=== PATIENT | male | born 1960 | race American Indian/Alaskan Native ===

== ENCOUNTER 2018-09-29 11:35 | Observation (INO) | payer MEDICAID ==
[2018-09-29] MEDS ORDERED: BABY ASPIRIN PO ONE (13:16)
--- NOTE | 2018-09-29 13:25 | Emergency Department Report ---
ED Chest Pain HPI - General Chief Complaint: Chest Pain Stated Complaint: CHEST PAIN/NAUSEA Time Seen by Provider: 09/29/18 12:06 Source: patient, family, EMS, old records reviewed Mode of arrival: Stretcher Limitations: No Limitations - History of Present Illness Initial Comments: 58-year-old -O[place] male presents to the emergency department with complaint of some midsternal chest pain that has been going on for the past 1.5 weeks but worsened today while in [employer]. He says that it is a tightness sensation. It is associated with some shortness of breath. Patient also complains of a fall that he had a few days ago. At that time he fell and his carotids, hit his head and had some loss of consciousness. He still has a mild headache and some right-sided neck pain. He has a past medical history of [id number] diabetes, high cholesterol, hypertension. He is a tobacco smoker but denies any illicit drug use or abuse. He has not taken anything for her symptoms prior to arrival. No recent travel or sick contacts at home. - Related Data Home Medications Medication Instructions Recorded Confirmed Last Taken Aspirin BABY CHEW TAB 1 tab PO DAILY 12/03/14 12/10/14 5 Days Ago ~12/05/14 Losartan 50 mg PO DAILY 12/03/14 12/10/14 12/10/14 06:00 Simvastatin 20 mg PO DAILY 12/03/14 12/10/14 12/09/14 11:00 Vitamin D 1 tab PO DAILY 12/03/14 12/10/14 12/09/14 11:00 metFORMIN 1,000 mg PO BID 12/03/14 12/10/14 12/09/14 18:00 Allergies Allergy/AdvReac Type Severity Reaction Status Date / Time No Known Allergies Allergy Verified 12/03/14 11:11 Heart Score - HEART Score History: Moderately suspicious EKG: Normal Age: 45-65 Risk factors: > 3 risk factors or hx of atherosclerotic disease Troponin: < normal limit HEART Score: 4 - Critical Actions Critical Actions: 4-6 pts:12-16.6% risk of adverse cardiac event. Should be admitted ED Review of Systems ROS: Stated complaint: CHEST PAIN/NAUSEA Other details as noted in HPI Comment: All other systems reviewed and negative Constitutional: denies: chills, fever Eyes: denies: eye pain, vision change ENT: denies: ear pain, throat pain Respiratory: shortness of breath. denies: cough Cardiovascular: chest pain. denies: edema Gastrointestinal: denies: vomiting, diarrhea Genitourinary: denies: dysuria, discharge Musculoskeletal: denies: joint swelling, arthralgia Skin: denies: rash, lesions Neurological: headache. denies: numbness, paresthesias ED Past Medical Hx - Past Medical History Hx Hypertension: Yes (losartan) Hx Heart Attack/AMI: No Hx Diabetes: Yes Hx Liver Disease: No Hx Seizures: No Hx Asthma: No Hx COPD: No Hx HIV: No - Surgical History Hx Pacemaker: No Hx Internal Defibrillator: No Hx Cholecystectomy: Yes - Social History Smoking Status: Current Every Day Smoker - Medications Home Medications: Home Medications Medication Instructions Recorded Confirmed Last Taken Type Aspirin BABY CHEW TAB 1 tab PO DAILY 12/03/14 12/10/14 5 Days Ago History ~12/05/14 Losartan 50 mg PO DAILY 12/03/14 12/10/14 12/10/14 06:00 History Simvastatin 20 mg PO DAILY 12/03/14 12/10/14 12/09/14 11:00 History Vitamin D 1 tab PO DAILY 12/03/14 12/10/14 12/09/14 11:00 History metFORMIN 1,000 mg PO BID 12/03/14 12/10/14 12/09/14 18:00 History ED Physical Exam - General Limitations: No Limitations - Other Other exam information: GENERAL: The patient is well-developed well-nourished. HEENT: Normocephalic. Atraumatic. Patient has moist mucous membranes. EYES: Extraocular motions are intact. Pupils are equal and reactive to light bilaterally. NECK: Supple. Trachea is midline. There is a right lateral cervical lymph node. CHEST/LUNGS: Clear to auscultation. There is no respiratory distress noted. HEART/CARDIOVASCULAR: Regular. There is no tachycardia. There is no obvious murmur. ABDOMEN: Abdomen is soft, nontender. Patient has normal bowel sounds. There is no abdominal distention. SKIN: Skin is warm and dry. NEURO: The patient is awake, alert, and oriented. The patient is cooperative. The patient has no focal neurologic deficits. The patient has normal speech. MUSCULOSKELETAL: There is no tenderness or deformity. There is no limitation range of motion. There is no evidence of acute injury. ED Course Vital Signs 09/29/18 09/29/18 09/29/18 11:56 12:01 12:15 Pulse Rate 85 78 76 Respiratory 11 L 17 17 Rate Blood Pressure 111/65 110/62 O2 Sat by Pulse Oximetry 09/29/18 09/29/18 09/29/18 12:30 12:45 13:00 Pulse Rate 84 82 80 Respiratory 16 16 13 Rate Blood Pressure 115/67 110/61 113/61 O2 Sat by Pulse Oximetry 09/29/18 09/29/18 09/29/18 13:15 13:30 13:45 Pulse Rate 79 72 77 Respiratory 16 16 17 Rate Blood Pressure 104/56 120/65 125/75 O2 Sat by Pulse Oximetry 09/29/18 09/29/18 09/29/18 13:50 14:00 14:35 Pulse Rate 73 73 Respiratory 18 18 14 Rate Blood Pressure 129/72 129/72 O2 Sat by Pulse Oximetry 09/29/18 09/29/18 09/29/18 14:45 15:00 15:15 Pulse Rate 73 78 84 Respiratory 17 16 17 Rate Blood Pressure 127/71 118/67 116/57 O2 Sat by Pulse Oximetry 09/29/18 15:30 Pulse Rate 73 Respiratory 16 Rate Blood Pressure 112/67 O2 Sat by Pulse 98 Oximetry FRANCOIS score - Francois Score Age > 65: (0) No Aspirin use within the Past 7 Days: (0) No 3 or more CAD Risk Factors: (1) Yes 2 or more Angina events in past 24 hrs: (1) Yes Known CAD with more than 50% Stenosis: (0) No Elevated Cardiac Markers: (0) No ST Deviation Greater than 0.5mm: (0) No FRANCOIS Score: 2 ED Medical Decision Making - Lab Data Result diagrams: 09/29/18 13:04 09/29/18 13:04 - EKG Data -: EKG Interpreted by Me EKG shows normal: sinus rhythm, axis, intervals, QRS complexes, ST-T waves Rate: normal - EKG Data When compared to previous EKG there are: previous EKG unavailable Interpretation: normal EKG - Radiology Data Radiology results: report reviewed, image reviewed interpreted by me: Chest x-ray does not show any pneumothorax, pleural effusion, pneumonia or obvious focal consolidation. EXAM: CT HEAD/BRAIN WO CON HISTORY: headache, trauma TECHNIQUE: CT of the head was performed. No intravenous contrast was admi nistered. PRIORS: None. FINDINGS: There is no evidence of intracranial hemorrhage. There is no edema, mass effect or midline shift. There are no abnormal extra-axial fluid collections. The ventricles are appropriate for brain volume. There is no skull fracture seen. There is some sinus mucosal thickening. IMPRESSION: There is no acute intracranial abnormality identified. Transcribed By: BETHANY Dictated By: CHEKO SALVADOR MD Electronically Authenticated By: CHEKO SALVADOR MD Signed Date/Time: 09/29/[address] of the cervical spine does not show any acute process. Degenerative changes noted. - Medical Decision Making Patient presents with some chest pain and shortness of breath has been going on for the past week but worsened today. EKG did not show any signs of ST elevation IL. Chest x-ray does not show any pleural effusions, pneumothorax, focal consolidation, pneumonia, or any other acute process. So far the patient 's labs have been unremarkable including negative troponins 2 and a negative d- dimer. Patient has a moderate heart score and a FRANCOIS score of 2. He has never had a full cardiac workup including any type of stress test or cardiac catheterization. He continues to have chest discomfort. He will be admitted to the hospital for further evaluation and treatment and was accepted for admission by the hospitalist, Dr. Hines. The patient had also complained of a mild headache and some neck pain after having a fall a few days ago. CT scan of the head and cervical spine were done that did not show any acute processes. - Differential Diagnosis IL, PE, Costochondritis, GERD Critical Care Time: No Critical care attestation.: If time is entered above; I have spent that time in minutes in the direct care of this critically ill patient, excluding procedure time. ED Disposition Clinical Impression: Acute chest pain, Ruled out for myocardial infarction Disposition: OP ADMIT IP TO THIS HOSP Is pt being admited?: Yes Condition: Stable Instructions: Chest Pain (ED) Referrals: YENNIFER SALAS [Primary Care Provider] - 3-5 Days Time of Disposition: 16:53
[2018-09-29 13:31] LABS: Basophils % (Auto) 0.7 % (0.0-1.8); Eosinophils # (Auto) 0.2 K/mm3 (0.0-0.4); Eosinophils % (Auto) 2.3 % (0.0-4.3); Hematocrit 38.8 % (35.5-45.6); Lymphocytes # (Auto) 2.8 K/mm3 (1.2-5.4); Lymphocytes % (Auto) 40.3 % (13.4-35.0); Mean Corpuscular HGB Conc 33 % (32-34); Mean Corpuscular Volume 89 fl (84-94); Monocytes # (Auto) 0.5 K/mm3 (0.0-0.8); Monocytes % (Auto) 7.2 % (0.0-7.3); Platelet Count 192 K/mm3 (140-440); Red Blood Count 4.39 M/mm3 (3.65-5.03); Red Cell Distribution Width 15.2 % (13.2-15.2)
--- NOTE | 2018-09-29 13:53 | XRay Report ---
FINAL REPORT EXAM: XR CHEST 1V AP HISTORY: Chest Pain COMPARISON: None. TECHNIQUE: Two frontal views of the chest FINDINGS: The cardiomediastinal silhouette is normal in appearance. The lungs are clear without focal consolidation. There is no pleural effusion or pneumothorax. There is no acute soft tissue or osseous abnormality. IMPRESSION: No acute cardiopulmonary disease.
[2018-09-29 14:47] LABS: Alanine Aminotransferase 18 units/L (7-56); Albumin 4.3 g/dL (3.9-5); BUN/Creatinine Ratio 23; Blood Urea Nitrogen 23 mg/dL (9-20); Calcium 9.3 mg/dL (8.4-10.2); Hemolysis Index 7
[2018-09-29] MEDS ORDERED: MORPHINE IV ONE ×2 (14:49→14:56)
--- NOTE | 2018-09-29 15:04 | Cat Scan Report ---
FINAL REPORT EXAM: CT HEAD/BRAIN WO CON HISTORY: headache, trauma TECHNIQUE: CT of the head was performed. No intravenous contrast was administered. PRIORS: None. FINDINGS: There is no evidence of intracranial hemorrhage. There is no edema, mass effect or midline shift. There are no abnormal extra-axial fluid collections. The ventricles are appropriate for brain volume. There is no skull fracture seen. There is some sinus mucosal thickening. IMPRESSION: There is no acute intracranial abnormality identified.
[2018-09-29] MEDS ORDERED: BABY ASPIRIN ONE (16:01)
[2018-09-30] MEDS ORDERED: DILAUDID IV PRN (03:47)
[2018-09-30] MEDS ORDERED: SODIUM CHLORIDE FLUSH SYRINGE 10 ML IV PRN (03:47)
[2018-09-30] MEDS ORDERED: TYLENOL PO PRN (03:47)
[2018-09-30] MEDS ORDERED: ZOFRAN IV PRN (03:47)
--- NOTE | 2018-09-30 03:58 | Event Note ---
Date: 09/29/18 See dictated H/p in reports Chest pain r/o KS HTN T2dm
[2018-09-30] MEDS ORDERED: NON-FORMULARY (Metformin 1,000 MG) PO SCH (04:00)
--- NOTE | 2018-09-30 04:41 | History and Physical Report ---
CHIEF COMPLAINT: Left-sided chest pain for the past 10 days. HISTORY OF PRESENT ILLNESS: The patient is a 58-year-old -[place] male comes in for left-sided chest pain for the last 10 days. Chest tightness sensation, 5/10 on a scale of 1-10. Slight shortness of breath present. Otherwise, no palpitations, no diaphoresis. The patient has history of type 2 diabetes, hypertension, and hyperlipidemia. PAST MEDICAL HISTORY: As mentioned, significant for hypertension, type 2 diabetes, and hyperlipidemia. PAST SURGICAL HISTORY: Cholecystectomy. SOCIAL HISTORY: Smokes about half a pack a day. FAMILY HISTORY: Significant for hypertension. REVIEW OF SYSTEMS: Significant for left-sided chest pain associated with slight shortness of breath. Otherwise, review of systems negative. PHYSICAL EXAMINATION: GENERAL: Middle-aged male, cooperative during examination. VITAL SIGNS: Blood pressure is 106/50, temperature is 98, pulse is 84, respirations 18. HEENT: Unremarkable. Pupils equal and reactive. NECK: Supple, no lymphadenopathy, no thyromegaly. LUNGS: Clear to auscultation and percussion. Good air entry. CARDIOVASCULAR: S1, S2 heard. No gallop, no murmur, no rub. Apical impulse in left fifth intercostal space and midclavicular line. ABDOMEN: Soft and benign. No hepatosplenomegaly. No guarding, no rigidity. Hernial orifices are normal. EXTREMITIES: Good pedal pulses. No pedal edema. CENTRAL NERVOUS SYSTEM: Alert and oriented x 4, nonfocal exam. LABORATORY DATA AND IMAGING: EKG shows normal sinus rhythm, no acute ST-T wave changes. CT of the head is normal. No acute findings. Labs are significant for white count of 7000, normal hemoglobin and hematocrit, normal electrolytes: Glucose is 162. ASSESSMENT AND PLAN: 1. Chest pain, rule out myocardial infarction, chest pain protocol. 2. Hypertension. Continue antihypertensives. 3. Type 2 diabetes mellitus. Continue metformin and coverage. 4. Hyperlipidemia. Continue statins. 5. Deep venous thrombosis prophylaxis, Lovenox 40 mg subcutaneous daily. JOB# [id number] VSM/NTS
[2018-09-30] MEDS ORDERED: NON-FORMULARY (Aspirin Baby Chew Tab 1 TAB) PO SCH (10:00)
[2018-09-30] MEDS ORDERED: PEPCID PO SCH (10:00)
[2018-09-30] MEDS ORDERED: NON-FORMULARY (Simvastatin 20 MG) PO SCH (10:00)
[2018-09-30] MEDS ORDERED: SODIUM CHLORIDE FLUSH SYRINGE 10 ML IV SCH (10:00)
[2018-09-30] MEDS ORDERED: BABY ASPIRIN PO SCH (10:00)
[2018-09-30] MEDS ORDERED: NON-FORMULARY (Amlodipine Besylate [Norvasc] 2.5 MG) PO SCH (10:00)
[2018-09-30] MEDS ORDERED: COZAAR PO SCH (10:00)
[2018-09-30] MEDS ORDERED: NORVASC PO SCH (10:00)
[2018-09-30] MEDS ORDERED: NON-FORMULARY (Losartan 50 MG) PO SCH (10:00)
[2018-09-30] MEDS ORDERED: LEXISCAN IV ONE (10:25)
--- NOTE | 2018-09-30 11:11 | Progress Note ---
Assessment and Plan Assessment and plan: Patient is a 58 yo man with a history of hypertension, type 2 DM, dyslipidemia and tobacco dependency who presented with Chest pains. -Chest pains, atypical: stress test pending -GERD: ppi -Type 2 dm: ssi, ada, metformin -Hypertension: continue antihypertensives, stress test pending, low salt diet stressed D/c if stress test negative. History Interval history: Patient was seen and examined. Follow-up on current diagnosis of cp and sob especially at night. Overnight uneventful. Patient denies any nausea/vomiting or severe headaches. Imaging, nursing note, chart, labs and old chart reviewed. Discussed with patient. Gen: WDWN, NAD, Awake, Alert, Orientated HEENT: NCAT, EOMI, PERRL, OP Clear Neck: supple, no adenopathy, no thyromegaly, no JVD CVS/Heart: RRR, normal S1S2, pulses present bilaterally Chest/Lungs: CTA B, Symmetrical chest expansion, good air entry bilaterally GI/Abdomen: soft, NTND, good bowel sounds, no guarding or rebound /Bladder: no suprapubic tenderness, no CVA or paraspinal tenderness Extermity/Skin: no c/c/e, no obvious rash MSK: FROM x 4 Neuro: CN 2-12 grossly intact, no new focal deficits Psych: calm Hospitalist Physical - Constitutional Vitals: Temp Pulse Resp BP Pulse Ox 97.8 F 68 18 137/91 98 09/30/18 08:49 09/30/18 08:49 09/30/18 08:49 09/30/18 08:49 09/30/18 08:49 Results - Labs CBC & Chem 7: 09/29/18 13:04 09/29/18 13:04 Labs: Laboratory Last Values WBC 7.0 K/mm3 (4.5-11.0) 09/29/18 13:04 RBC 4.39 M/mm3 (3.65-5.03) 09/29/18 13:04 Hgb 13.0 gm/dl (11.8-15.2) 09/29/18 13:04 Hct 38.8 % (35.5-45.6) 09/29/18 13:04 MCV 89 fl (84-94) 09/29/18 13:04 MCH 30 pg (28-32) 09/29/18 13:04 MCHC 33 % (32-34) 09/29/18 13:04 RDW 15.2 % (13.2-15.2) 09/29/18 13:04 Plt Count 192 K/mm3 (140-440) 09/29/18 13:04 Lymph % (Auto) 40.3 % (13.4-35.0) H 09/29/18 13:04 [place] % (Auto) 7.2 % (0.0-7.3) 09/29/18 13:04 Eos % (Auto) 2.3 % (0.0-4.3) 09/29/18 13:04 Baso % (Auto) 0.7 % (0.0-1.8) 09/29/18 13:04 Lymph # 2.8 K/mm3 (1.2-5.4) 09/29/18 13:04 [place] # 0.5 K/mm3 (0.0-0.8) 09/29/18 13:04 Eos # 0.2 K/mm3 (0.0-0.4) 09/29/18 13:04 Baso # 0.0 K/mm3 (0.0-0.1) 09/29/18 13:04 Seg Neutrophils % 49.5 % (40.0-70.0) 09/29/18 13:04 Seg Neutrophils # 3.5 K/mm3 (1.8-7.7) 09/29/18 13:04 D-Dimer < 135.00 ng/mlDDU (0-234) 09/29/18 13:04 Sodium 139 mmol/L (137-145) 09/29/18 13:04 Potassium 4.1 mmol/L (3.6-5.0) 09/29/18 13:04 Chloride 102.4 mmol/L (98-107) 09/29/18 13:04 Carbon Dioxide 23 mmol/L (22-30) 09/29/18 13:04 Anion Gap 18 mmol/L 09/29/18 13:04 BUN 23 mg/dL (9-20) H 09/29/18 13:04 Creatinine 1.0 mg/dL (0.8-1.5) 09/29/18 13:04 Estimated GFR > 60 ml/min 09/29/18 13:04 BUN/Creatinine Ratio 23 % 09/29/18 13:04 Glucose 162 mg/dL (75-100) H 09/29/18 13:04 Hemoglobin A1c 7.5 % (4-6) H 09/30/18 06:46 Calcium 9.3 mg/dL (8.4-10.2) 09/29/18 13:04 Total Bilirubin 0.20 mg/dL (0.1-1.2) 09/29/18 13:04 AST 19 units/L (5-40) 09/29/18 13:04 ALT 18 units/L (7-56) 09/29/18 13:04 Alkaline Phosphatase 91 units/L (35-129) 09/29/18 13:04 Troponin T < 0.010 ng/mL (0.00-0.029) 09/29/18 17:50 Total Protein 7.5 g/dL (6.3-8.2) 09/29/18 13:04 Albumin 4.3 g/dL (3.9-5) 09/29/18 13:04 Albumin/Globulin Ratio 1.3 % 09/29/18 13:04
--- NOTE | 2018-09-30 11:14 | Discharge Summary ---
Providers - Providers Date of Admission: 09/29/18 15:39 Date of discharge: 09/30/18 Attending physician: COLUMBA MEDINA Primary care physician: YENNIFER SALAS Hospitalization Condition: Stable Hospital course: Patient is a 58 yo man with a history of hypertension, type 2 DM, dyslipidemia and tobacco dependency who presented with Chest pains. -Chest pains, atypical: stress test pending -GERD: ppi -Type 2 dm: ssi, ada, metformin -Hypertension: continue antihypertensives, stress test pending, low salt diet stressed D/c if stress test negative. Disposition: DC-01 TO HOME OR SELFCARE Time spent for discharge: 31 minutes Core Measure Documentation - Palliative Care Palliative Care/ Comfort Measures: Not Applicable - Core Measures Any of the following diagnoses?: none - VTE Discharge Requirements Deep Vein Thrombosis/Pulmonary Embolism Present on Admission: No Has pt received <5 days of overlap therapy or INR<2.0: No Anticoagulant overlap therapy prescribed at discharge: No Contraindication No Overlap Therapy order at DC: Not Indicated Exam - Physical Exam Narrative exam: Gen: WDWN, NAD, Awake, Alert, Orientated HEENT: NCAT, EOMI, PERRL, OP Clear Neck: supple, no adenopathy, no thyromegaly, no JVD CVS/Heart: RRR, normal S1S2, pulses present bilaterally Chest/Lungs: CTA B, Symmetrical chest expansion, good air entry bilaterally GI/Abdomen: soft, NTND, good bowel sounds, no guarding or rebound /Bladder: no suprapubic tenderness, no CVA or paraspinal tenderness Extermity/Skin: no c/c/e, no obvious rash MSK: FROM x 4 Neuro: CN 2-12 grossly intact, no new focal deficits Psych: calm - Constitutional Vitals: Temp Pulse Resp BP Pulse Ox 97.8 F 68 18 137/91 98 09/30/18 08:49 09/30/18 08:49 09/30/18 08:49 09/30/18 08:49 09/30/18 08:49 Plan Activity: other (no strenous activity unless cleared by PCP) Diet: low salt, diabetic Additional Instructions: buying Nexium over the counter Follow up with: YENNIFER SALAS [Primary Care Provider] - 3-5 Days
[2018-09-30] MEDS: HumaLOG SUB-Q SCH ×3 (12:35→17:10)
[2018-09-30] MEDS: GLUCOPHAGE PO SCH ×2 (12:44→17:09)
[2018-09-30] MEDS: GLUCOTROL PO SCH ×2 (12:51→17:09)
[2018-09-30 13:00] VITALS: BP 140/78
[2018-09-30] MEDS ORDERED: PRAVACHOL PO SCH (22:00)
[2018-09-30] MEDS ORDERED: LOVENOX SUB-Q SCH (22:00)
--- NOTE | 2018-09-30 23:35 | Treadmill Report ---
NUCLEAR PERFUSION SCAN REFERRING PHYSICIAN: Shraddha Hines MD PROTOCOL: The patient was brought to the stress lab in a postabsorptive state, given 10 mCi of technetium 99m at rest. The patient underwent rest imaging. The patient underwent Lexiscan stress test. At peak stress, the patient was given 26 mCi of technetium 99m. Shortly thereafter, the patient underwent stress imaging. Raw imaging reveals significant subdiaphragmatic activity/GI artifact. This is a technically somewhat difficult study; however, grossly, this is probably a normal study without evidence of a significant degree of ischemia or prior infarction. No significant fixed or reversible perfusion defects identified. Gated wall motion reveals normal systolic thickening with a calculated ejection fraction of 55%. No TID. CONCLUSIONS: 1. Technically difficult study due to subdiaphragmatic activity, but grossly probably normal without evidence of significant degree of ischemia or prior infarction. 2. Normal left ventricular systolic performance without evidence of transient ischemic dilatation or stress-induced segmental wall motion abnormalities. 3. Stress test reported separately. 4. Clinical correlation recommended. JOB# [id number] AIDA/MARY
--- NOTE | 2018-10-01 08:21 | Cat Scan Report ---
FINAL REPORT EXAM: CT CERVICAL SPINE WO CON HISTORY: fall, neck pain TECHNIQUE: Standard CT cervical spine obtained at 2.5 mm axial increments. Coronal and sagittal rec onstruction was also performed. PRIORS: None. FINDINGS: The vertebral bodies are intact. There is no evidence for acute fracture. There is no evidence for paravertebral soft tissue swelling. Alignment is maintained. Moderate disc space narrowing is present throughout the cervical spine, most marked at C5-C6. Large o steophytes anteriorly are noted from C3-4 through C7. Facet joint degenerative changes are noted at C 2-C3 to the left. IMPRESSION: No acute abnormality of the cervical spine. Degenerative disc changes throughout the cervical spine
== END 2018-09-30 18:10 | disposition home or self-care (01) ==
LOC: ED 11:35 → 4A 15:39
PROVIDERS: ADMIT Internal Medicine; ATTEND Internal Medicine
DX: R07.89 Other chest pain (principal); I10 Essential (primary) hypertension; E11.9 Type 2 diabetes mellitus without complications; E78.5 Hyperlipidemia, unspecified; F17.200 Nicotine dependence, unspecified, uncomplicated; Z86.718 Personal history of other venous thrombosis and embolism
CPT/HCPCS: 36415; 70450; 71045; 72125; 78452; 80053; 82962; 83036; 84484; 85025; 85379; 93005; 93010; 93017; 96372; 96374; 99284; A9502; G0378; J2270; J2785